=== PATIENT | female | born 1945 | race Caucasian/White ===

== ENCOUNTER 2021-10-20 11:17 | Emergency (ER) | payer MEDICARE ==
[2021-10-20] VITALS (15 sets, daily range): BP systolic 65–187; BP diastolic 31–158
[~2021-10-20] VITALS: Ht 172.7 cm; Wt 76.3 kg
[~2021-10-20 11:17] MED LIST: ACTOS15 MG PO; ADLT ASA LOW81 MG PO; BLACK COHOSH540 MG OR; CIPRO500 MG PO; CIPROFLOXACN500 MG PO; COREG3.125 MG PO; COSAMIN DS1 CA1 OR; DIFLUCAN150 MG OR; DIFLUCAN150 MG PO; DYAZIDE1 CAP OR; E400400 UNIT PO; ESTER-C500 MG PO; FLEXERIL5 MG PO; FLUZONE1 M1 IM; FUROSEMIDE20 MG PO; LASIX OR; LEXAPRO20 MG PO; LIPITOR10 MG PO; LISINOPRIL5 MG PO; LORTAB 5 PO; MECLIZINE25 MG PO; MELOXICAM7.5 MG PO; METFORMIN1000 MG PO; METFORMIN500 MG PO; NEXIUM40 M1 PO; SERTRALINE50 MG PO; VITAMIN D1000 UNIT PO; ZOLOFT100 MG PO; ZOLOFT50 MG PO; ZYLOPRIM100 MG PO
[2021-10-20 12:42] LABS: HEMATOCRIT 38.6 % (37.0-47.0); HEMOGLOBIN 12.2 g/dl (12.0-16.0); IMMATURE GRANULOCYTES 0.1 % (0.0-5.0); MEAN CORPUSCULAR HGB 28.5 pG CALC (26.0-32.0); MEAN CORPUSCULAR HGB CONC 31.6 g/dL CAL (32.0-36.0); NEUT# 7.07 thou/uL (2.00-7.15); RED BLOOD COUNT 4.28 mill/uL (4.20-5.60); RED CELL DISTRI WIDTH 13.9 % (11.5-15.5)
[2021-10-20 12:43] LABS: MEAN CELL VOLUME 90.2 fL CALC (80.0-100.0)
[2021-10-20 13:07] LABS: ALBUMIN 4.3 g/dL (3.2-5.0); ALKALINE PHOSPHATASE 100 u/l (38-126); ANION GAP 14 (6-22 (CALC)); BUN 23 mg/dL (8-23); BUN/CREATININE RATIO 25 (12-20 (CALC)); CARBON DIOXIDE 25 mmol/l (22-30); CHLORIDE 104 mmol/l (95-108); CREATININE 0.9 mg/dL (0.5-1.0); GFR FOR AFR.AMER. > 60 ML/MIN (>=60 (CALC)); GFR OTHER RACES > 60 ML/MIN (>=60 (CALC)); POTASSIUM 3.9 mmol/l (3.5-5.1); SGOT/AST 27 u/l (9-36); SODIUM 139 mmol/l (137-146); TOTAL PROTEIN 7.4 g/dL (6.3-8.2)
[2021-10-20 13:08] LABS: BILIRUBIN, TOTAL 0.5 mg/dL (0.0-1.4)
[2021-10-20 13:29] LABS: URINE BILIRUBIN - DIPSTICK NEGATIVE (NEGATIVE); URINE BLOOD DIPSTICK NEGATIVE (NEGATIVE); URINE COLOR YELLOW; URINE GLUCOSE - DIPSTICK NEGATIVE (NEGATIVE); URINE KETONE NEGATIVE (NEGATIVE); URINE PH 5.5 (4.5-8.0); URINE PROTEIN - DIPSTICK NEGATIVE (NEG-TRACE); URINE UROBILINOGEN - DIPSTICK 0.2 E.U./dL (0.2)
[2021-10-20 13:30] LABS: URINE LEUK ESTERASE SMALL (NEGATIVE); URINE NITRITE - DIPSTICK NEGATIVE (Negative)
[2021-10-20 13:37] LABS: URINE TRANSITIONAL EPI. CELLS RARE hpf
[2021-10-20] MEDS ORDERED: METRONIDAZOLE500 MG PO ×2 (14:49→15:04)
[2021-10-20] MEDS ORDERED: ZOFRAN4 MG/TAB PO ×2 (14:49→15:04)
[2021-10-20] MEDS ORDERED: CIPROFLOXACN500 MG PO ×2 (14:49→15:04)
== END 2021-10-20 15:10 | disposition home or self-care (01) ==
LOC: ED 11:17
PROVIDERS: Family Medicine
DX: K57.32 Diverticulitis of large intestine without perforation or abscess without bleeding (principal); I10 Essential (primary) hypertension; E11.9 Type 2 diabetes mellitus without complications; I25.10 Atherosclerotic heart disease of native coronary artery without angina pectoris; Z79.84 Long term (current) use of oral hypoglycemic drugs
CPT/HCPCS: Q9967

== ENCOUNTER 2022-02-18 16:51 | Emergency (ER) | payer MEDICARE ==
[2022-02-18] VITALS (8 sets, daily range): BP systolic 123–191; BP diastolic 49–83
[~2022-02-18] VITALS: Ht 172.7 cm; Wt 77.2 kg
[~2022-02-18 16:51] MED LIST changes: +METRONIDAZOLE500 MG PO; +ZOFRAN4 MG/TAB PO
[2022-02-18 17:43] LABS: HEMATOCRIT 36.3 % (37.0-47.0); HEMOGLOBIN 11.7 g/dl (12.0-16.0); IMMATURE GRANULOCYTES 0.1 % (0.0-5.0); MEAN CELL VOLUME 87.9 fL CALC (80.0-100.0); MEAN CORPUSCULAR HGB 28.3 pG CALC (26.0-32.0); MEAN CORPUSCULAR HGB CONC 32.2 g/dL CAL (32.0-36.0); NEUT# 7.68 thou/uL (2.00-7.15); RED BLOOD COUNT 4.13 mill/uL (4.20-5.60); RED CELL DISTRI WIDTH 13.8 % (11.5-15.5)
[2022-02-18 18:02] LABS: ALBUMIN 4.3 g/dL (3.2-5.0); ALKALINE PHOSPHATASE 92 u/l (38-126); ANION GAP 13 (6-22 (CALC)); BILIRUBIN, TOTAL 0.5 mg/dL (0.0-1.4); BUN 18 mg/dL (8-23); BUN/CREATININE RATIO 19 (12-20 (CALC)); CARBON DIOXIDE 25 mmol/l (22-30); CHLORIDE 100 mmol/l (95-108); GFR FOR AFR.AMER. > 60 ML/MIN (>=60 (CALC)); GFR OTHER RACES 54 ML/MIN (>=60 (CALC)); LIPASE 75 u/l (23-300); POTASSIUM 3.6 mmol/l (3.5-5.1); SGOT/AST 30 u/l (9-36); SODIUM 135 mmol/l (137-146)
[2022-02-18 18:14] LABS: URINE BILIRUBIN - DIPSTICK NEGATIVE (NEGATIVE); URINE BLOOD DIPSTICK NEGATIVE (NEGATIVE); URINE COLOR YELLOW; URINE GLUCOSE - DIPSTICK NEGATIVE (NEGATIVE); URINE KETONE NEGATIVE (NEGATIVE); URINE LEUK ESTERASE NEGATIVE (NEGATIVE); URINE NITRITE - DIPSTICK NEGATIVE (Negative); URINE PH 6.5 (4.5-8.0); URINE PROTEIN - DIPSTICK NEGATIVE (NEG-TRACE); URINE UROBILINOGEN - DIPSTICK 0.2 E.U./dL (0.2)
[2022-02-18] MEDS ORDERED: XANAX0.25 MG PO (19:39)
== END 2022-02-18 20:10 | disposition home or self-care (01) ==
LOC: ED 16:51
PROVIDERS: Nurse Practitioner
DX: R35.0 Frequency of micturition (principal); F41.9 Anxiety disorder, unspecified; R41.3 Other amnesia; I10 Essential (primary) hypertension

== ENCOUNTER 2022-05-03 13:33 | Emergency (ER) | payer MEDICARE ==
[~2022-05-03] VITALS: Ht 172.7 cm; Wt 80.0 kg
[~2022-05-03 13:33] MED LIST changes: +XANAX0.25 MG PO
[2022-05-03 13:52] VITALS: BP 147/69
[2022-05-03 14:21] LABS: HEMATOCRIT 30.8 % (37.0-47.0); IMMATURE GRANULOCYTES 0.2 % (0.0-5.0); MEAN CORPUSCULAR HGB 27.1 pG CALC (26.0-32.0); MEAN CORPUSCULAR HGB CONC 31.2 g/dL CAL (32.0-36.0); NEUT# 8.96 thou/uL (2.00-7.15); RED BLOOD COUNT 3.54 mill/uL (4.20-5.60); RED CELL DISTRI WIDTH 14.3 % (11.5-15.5)
[2022-05-03 14:32] LABS: HEMOGLOBIN 9.6 g/dl (12.0-16.0)
[2022-05-03 14:37] LABS: ALBUMIN 3.8 g/dL (3.2-5.0); ALKALINE PHOSPHATASE 86 u/l (38-126); ANION GAP 12 (6-22 (CALC)); BILIRUBIN, TOTAL 0.3 mg/dL (0.0-1.4); BUN 13 mg/dL (8-23); BUN/CREATININE RATIO 19 (12-20 (CALC)); CARBON DIOXIDE 25 mmol/l (22-30); CHLORIDE 103 mmol/l (95-108); CREATININE 0.7 mg/dL (0.5-1.0); GFR FOR AFR.AMER. > 60 ML/MIN (>=60 (CALC)); GFR OTHER RACES > 60 ML/MIN (>=60 (CALC)); LIPASE 47 u/l (23-300); POTASSIUM 3.2 mmol/l (3.5-5.1); SGOT/AST 29 u/l (9-36); SODIUM 137 mmol/l (137-146); TOTAL PROTEIN 6.5 g/dL (6.3-8.2)
[2022-05-03 15:48] LABS: URINE BILIRUBIN - DIPSTICK NEGATIVE (NEGATIVE); URINE BLOOD DIPSTICK NEGATIVE (NEGATIVE); URINE COLOR YELLOW; URINE GLUCOSE - DIPSTICK NEGATIVE (NEGATIVE); URINE KETONE NEGATIVE (NEGATIVE); URINE LEUK ESTERASE NEGATIVE (NEGATIVE); URINE PH 6.5 (4.5-8.0); URINE PROTEIN - DIPSTICK TRACE mg/dL (NEG-TRACE); URINE SPECIFIC GRAVITY >=1.030; URINE UROBILINOGEN - DIPSTICK 0.2 E.U./dL (0.2)
[2022-05-03 15:55] LABS: URINE NITRITE - DIPSTICK NEGATIVE (Negative)
[2022-05-03] MEDS ORDERED: ZOFRAN4 MG/TAB PO (16:04)
[2022-05-03] MEDS ORDERED: AMOX/K CLAV875 M1 PO (16:04)
== END 2022-05-03 16:31 | disposition home or self-care (01) ==
LOC: ED 13:33
PROVIDERS: Family Medicine
DX: R10.32 Left lower quadrant pain (principal); R11.2 Nausea with vomiting, unspecified; E11.9 Type 2 diabetes mellitus without complications; I10 Essential (primary) hypertension; E66.9 Obesity, unspecified; Z95.5 Presence of coronary angioplasty implant and graft; Z79.84 Long term (current) use of oral hypoglycemic drugs; Z87.19 Personal history of other diseases of the digestive system

== ENCOUNTER 2022-07-03 10:26 | Emergency (ER) | payer MEDICARE ==
[~2022-07-03] VITALS: Ht 172.7 cm; Wt 81.6 kg
[2022-07-03] VITALS (12 sets, daily range): BP systolic 106–191; BP diastolic 70–124
[~2022-07-03 10:26] MED LIST changes: +AMOX/K CLAV875 M1 PO
[2022-07-03 10:50] LABS: BASO% 0.6 % (0-3); EOS% 1.4 % (0-8); HEMOGLOBIN 11.5 g/dl (12.0-16.0); IMMATURE GRANULOCYTES 0.2 % (0.0-5.0); LYMPH% 20.6 % (15-41); MEAN CELL VOLUME 83.4 fL CALC (80.0-100.0); MEAN CORPUSCULAR HGB 25.5 pG CALC (26.0-32.0); MEAN CORPUSCULAR HGB CONC 30.6 g/dL CAL (32.0-36.0); NEUT# 5.95 thou/uL (2.00-7.15); NEUT% 70.2 % (42-76); RED BLOOD COUNT 4.51 mill/uL (4.20-5.60); RED CELL DISTRI WIDTH 15.3 % (11.5-15.5)
[2022-07-03 10:51] LABS: HEMATOCRIT 37.6 % (37.0-47.0)
[2022-07-03 11:05] LABS: ALBUMIN 4.2 g/dL (3.2-5.0); ALKALINE PHOSPHATASE 106 u/l (38-126); ANION GAP 12 (6-22 (CALC)); BUN 15 mg/dL (8-23); BUN/CREATININE RATIO 22 (12-20 (CALC)); CARBON DIOXIDE 23 mmol/l (22-30); CHLORIDE 105 mmol/l (95-108); CREATININE 0.7 mg/dL (0.5-1.0); GFR FOR AFR.AMER. > 60 ML/MIN (>=60 (CALC)); GFR OTHER RACES > 60 ML/MIN (>=60 (CALC)); POTASSIUM 3.7 mmol/l (3.5-5.1); SGOT/AST 28 u/l (9-36); SODIUM 136 mmol/l (137-146)
[2022-07-03 11:07] LABS: BILIRUBIN, TOTAL 0.5 mg/dL (0.02-1.3)
[2022-07-03] MEDS ORDERED: ATENOLOL25 MG PO (11:11)
[2022-07-03] MEDS ORDERED: ATORVASTATIN CA80 MG PO (11:11)
[2022-07-03] MEDS ORDERED: METHOCARBAMOL500 MG PO (11:11)
[2022-07-03] MEDS ORDERED: AMLODIPINE BESYL5 MG PO (11:13)
[2022-07-03] MEDS ORDERED: BREO ELLIPTA 101 INH (11:13)
[2022-07-03] MEDS ORDERED: ISOSORBIDE MONO30 MG PO (11:13)
[2022-07-03] MEDS ORDERED: NITROGLYCERIN0.4 MG (11:14)
[2022-07-03] MEDS ORDERED: [UNRECOGNIZED DRUG - OTHER] (11:14)
[2022-07-03] MEDS ORDERED: METFORMIN HCL500 M1 PO (11:15)
[2022-07-03] MEDS ORDERED: LANTUS100 UNIT SC (11:15)
== END 2022-07-03 13:13 | disposition short-term general hospital (02) ==
LOC: ED 10:26 → ED-I 11:00 → ED 13:13
PROVIDERS: Family Medicine
DX: I20.0 Unstable angina (principal); I10 Essential (primary) hypertension; E11.9 Type 2 diabetes mellitus without complications; J44.9 Chronic obstructive pulmonary disease, unspecified; F17.210 Nicotine dependence, cigarettes, uncomplicated; Z95.5 Presence of coronary angioplasty implant and graft; Z79.84 Long term (current) use of oral hypoglycemic drugs; Z79.4 Long term (current) use of insulin
CPT/HCPCS: J1650